=== PATIENT | female | born 1950 | race Caucasian/White ===

== ENCOUNTER 2018-07-23 01:46 | Outpatient (CLI) | payer OTHER, SELFPAY ==
[2018-07-23 10:59] LABS: ALT 38 U/L (12-78); AST 20 U/L (15-37); Albumin 4.1 g/dL (3.4-5.0); Alkaline Phosphatase 67 U/L (46-116); Anion Gap 7.1 mmol/L (3-11); BUN 21 mg/dL (7-18); Bilirubin, Total 0.4 mg/dL (0.2-1.0); CO2 28.9 mmol/L (21.0-32.0); CREATININE 0.78 mg/dL (0.55-1.02); Calcium 8.9 mg/dL (8.5-10.1); Chloride 105 mmol/L (98-107); Cholesterol 219 mg/dL (50-200); Glucose 107 mg/dL (70-100); HDL Cholesterol 84 mg/dL (40-60); LDL CHOLESTEROL 121 mg/dL (<100); Potassium 4.8 mmol/L (3.5-5.1); Sodium 141 mmol/L (136-145); Total Protein 6.8 g/dL (6.4-8.2); Triglyceride 49 mg/dL (30-150)
== END 2018-07-23 02:06 ==
DX: Z86.010 Personal history of colon polyps (principal); D48.5 Neoplasm of uncertain behavior of skin; Z13.220 Encounter for screening for lipoid disorders
CPT/HCPCS: 36415; 80053; 80061; 83721

== ENCOUNTER → 2018-11-02 09:53 | Outpatient (BNVA) | payer OTHER, SELFPAY | PROVIDERS: Visit Provider Physical Therapy Assistant | DX: Z12.11 Encounter for screening for malignant neoplasm of colon (principal); Z86.010 Personal history of colon polyps ==

== ENCOUNTER 2018-11-23 08:03 | Day surgery (SDC) | payer OTHER, SELFPAY ==
--- NOTE | 2018-11-23 06:30 | W.COLOREPORT ---
Date of service: 11/23/18 Time of Service: 09:18 Colonoscopy Report Date of procedure: 11/23/18 Pre-op diagnosis general: Hx of colon Polyps Post-op diagnosis procedure note: same (diverticulosis) Procedure: Colonoscopy Surgeon: Karin Brunner Anesthesia proc note operative: MAC (Jovanni Merino, KERRY/ ASA 2) Estimated blood loss (mL): 0 Pathology: none sent Complications: None Disposition: no change Indications: Mrs. Hoskins is a pleasant 68 year old who was seen in the office for another colonoscopy. She was noted to have a tubular adenoma in 2013. Risks, benefits and complications have been reviewed. Complications include but are not limited to bleeding, pain, perforation, missed small lesion/polyp, sore throat, aspiration and adverse reaction to the medications. Questions were entertained and answered to their satisfaction and they wished to proceed. No guarantees were given or implied. Prep: Miralax/Dulcolax Procedure Start Time: :18 Procedure End Time: 09:42 Retraction Time: 15 minutes Findings: Sigmoid diverticulosis No polyps this time Procedure Description: After informed consent was obtained the patient was taken to the procedure room and placed in a left decubitous position. Monitors were applied and a time out was done. The patients name, date of , procedure, allergies to medications and metal in their body was reviewed. The patient was then sedated. Once sedated and comfortable a rectal exam was done. External exam was normal. Internal exam revealed a normal sphincter tone and no palpable masses. The scope was then introduced and retro-flexed. No internal hemorrhoids were identified. The scope was then advanced to the cecum with some difficulty due to divericulosis of the sigmoid colon. The TI and appendiceal orifice were identified. The prep was adequate. The scope was then slowly retracted over 15 minutes back into the rectum. There were no polyps noted. There was moderate diverticulosis of the sigmoid colon. The scope was removed and the patient was woken up and taken back to Same day surgery in stable condition. The patient tolerated the procedure well and there were no immediate complications. Follow up: The patient should follow up in 5 years unless they develop changes in bowel habits or other new gastrointestinal complaints.
--- NOTE | 2018-11-23 06:31 | W.PM.DSUDISC ---
Discharge Plan Disposition Patient Disposition: HOME Condition: Good Discharge Details Reason For Visit: Hx of colon Polyps Attending Provider: Karin Brunner Primary Care Provider: Emi Kahn Home Meds and New Rx's Prescriptions: Continued naproxen 250 mg tablet 250 mg PO BID PRNRF: 0 glucosamine HCl 1,500 mg tablet 1,500 mg PO DAILY RF: 0 niacin 500 mg tablet 500 mg PO DAILY RF: 0 Triple Magnesium Complex 400 mg capsule PO RF: 0 fluticasone [Flonase Allergy Relief] 50 mcg/actuation spray,suspension 2 spray JR DAILY Qty: 47.4 RF: 3 Aidee-D 24 Hour 180-240 mg tablet extended release 24 hr 1 tab PO QAM Qty: 90 RF: 3 cholecalciferol (vitamin D3) 1,000 unit tablet 2,000 unit PO DAILY RF: 0 omega-3 fatty acids-fish oil [Fish Oil] 1 EACH capsule 1 ea PO DAILY RF: 0 metronidazole 55 GM gel with pump 1 applic Topical BID PRNQty: 1 RF: 0 lutein 20 MG capsule 1 cap PO DAILY RF: 0 coenzyme Q10 [Co Q-10] 30 MG capsule 1 cap PO DAILY RF: 0 acetaminophen [Tylenol Extra Strength] 500 mg Tablet 1,000 mg PO Q6H PRNRF: 0 Discontinued bisacodyl [Dulcolax (bisacodyl)] 5 mg tablet,delayed release (DR/EC) 5 mg PO ONCE Qty: 4 RF: 0 polyethylene glycol 3350 17 gram/dose powder 255 g PO ONCE Qty: 255 RF: 0 Discharge Instructions Instructions: Colonoscopy (DC), Diverticulosis (DC) Additional Instructions: Findings: Diverticulosis Follow up:5 years Please call if you develop: fevers >101.5 Nausea or Vomiting Abdominal pain that is not transient DAY SURGERY UNIT POST COLONOSCOPY INSTRUCTIONS 1. Because there will be medication in your system for the next 24 hours, you may feel a little sleepy. Your coordination will be affected. Therefore: a. Do not drive or operate dangerous equipment for 24 hours. b. Do not drink alcohol beverages for 24 hours (not even beer). c. Plan to go home and rest for the day. 2. Generally there are no restrictions on your activity after a day or so has gone by, but you may feel a bit fatigued for a few days. 3 After you arrive home you may have a light meal and return to a normal diet as you can tolerate it without feeling sick to your stomach. 4. After surgery, you may feel pain or discomfort. This should be only transient, but if it persists please contact your doctor. 5. If there are any questions regarding the findings of your procedure, please feel free to contact your doctor. 6. If you are unable to contact your doctor with a problem, contact the hospital at [phone]. 7. Continue all your regular medications unless directed otherwise. I understand the above instructions and have no questions. Signature of Patient or Responsible Adult Escort Date/Time Name of Responsible Adult Escort Signature of Nurse Date/Time Activity:: Activity as Tolerated Diet:: high fiber diet Discharge Orders Discharge Orders: Discharge Order (Routine); Ordered 11/23/18 Ordered By: Karin Brunner DS: Diagnosis Discharge Diagnosis (1) S/P colonoscopy: Status: Acute (2) Diverticulosis: Status: Acute
[2018-11-23 08:26] VITALS: BP 130/74; PULSE 87; RESP 16; TEMP 36.7; O2SAT 99
[2018-11-23] MEDS: Lactated Ringers 1,000 ML 80 ML IV (08:40)
[2018-11-23 10:15] VITALS: BP 132/75; PULSE 70; RESP 16; TEMP 36.3; O2SAT 99
== END 2018-11-23 10:37 | disposition home or self-care (01) ==
LOC: SUR 08:04
PROVIDERS: Visit Provider Surgery
PROC: 0DJD8ZZ Inspection of Lower Intestinal Tract, Via Natural or Artificial Opening Endoscopic (ICD-10-PCS; CPT 45378; principal; 2018-11-23 09:30)
DX: Z12.11 Encounter for screening for malignant neoplasm of colon (principal); K57.30 Diverticulosis of large intestine without perforation or abscess without bleeding; Z86.010 Personal history of colon polyps
CPT/HCPCS: G0105

== ENCOUNTER 2019-07-23 01:37 | Outpatient (CLI) | payer OTHER, SELFPAY ==
--- NOTE | 2019-07-23 11:12 | DI.RAD_ITS ---
EXAM: XR HIP RT COMPLETE AP PELVIS INDICATION: HIP PAIN WITH RIGHT GROIN PAIN. COMPARISON: No exams were available for comparison TECHNIQUE: 2D digital imaging was performed. FINDINGS: Three views were obtained. Cartilaginous joint space of the left hip and the bones of the left hip a ppear within normal limits. There is loss cartilaginous joint space of the right hip superiorly with [id number] appearance. Th ere is marked subchondral sclerosis and deformity of the femoral head and acetabulum. There are prom inent hypertrophic spurs of the acetabulum and femoral head. IMPRESSION: Conclusion end-stage degenerative change right hip
--- NOTE | 2019-07-23 11:14 | DI.RAD_ITS ---
EXAM: XR LUMBAR SPINE COMPLETE INDICATION: CHRONIC BILAT LOW LUMBAR PAIN WITH SCIATICA R. COMPARISON: No exams were available for comparison TECHNIQUE: 2D digital imaging was performed. FINDINGS: Five views were obtained. There are slight degenerative changes of the SI joints bilaterally. There are moderate hypertrophic facet joint and endplate changes. There is multilevel disc space narrowin g throughout the lumbar spine. No evidence of compression fracture. IMPRESSION: Conclusion degenerative changes of the lumbar spine, no evidence of acute process.
== END 2019-07-23 01:57 ==
DX: M54.31 Sciatica, right side (principal); M25.551 Pain in right hip; M16.12 Unilateral primary osteoarthritis, left hip; M53.3 Sacrococcygeal disorders, not elsewhere classified; M51.16 Intervertebral disc disorders with radiculopathy, lumbar region
CPT/HCPCS: 72110; 73502

== ENCOUNTER 2019-07-28 09:15 | Outpatient (CLI) | payer OTHER, SELFPAY ==
[2019-07-28 12:05] LABS: ALT 32 U/L (14-59); AST 22 U/L (15-37); Alkaline Phosphatase 65 U/L (46-116); Anion Gap 6.5 mmol/L (3-11); BUN 16 mg/dL (7-18); Bilirubin, Total 0.6 mg/dL (0.2-1.0); CO2 30.5 mmol/L (21.0-32.0); CREATININE 0.73 mg/dL (0.55-1.02); Calcium 9.2 mg/dL (8.5-10.1); Calculated LDL 128 mg/dL; Chloride 105 mmol/L (98-107); Cholesterol 218 mg/dL (50-200); Glucose 103 mg/dL (70-100); HDL Cholesterol 79 mg/dL (40-60); Potassium 4.8 mmol/L (3.5-5.1); Sodium 142 mmol/L (136-145); Triglyceride 56 mg/dL (30-150)
== END 2019-07-28 09:35 ==
DX: E78.5 Hyperlipidemia, unspecified (principal); I10 Essential (primary) hypertension; J30.9 Allergic rhinitis, unspecified; L40.9 Psoriasis, unspecified
CPT/HCPCS: 36415; 80053; 80061

== ENCOUNTER 2019-08-19 01:29 | Outpatient (CLI) | payer OTHER, SELFPAY ==
--- NOTE | 2019-08-19 10:11 | DI.MAMMO_ITS ---
EXAM: MG MAMMO SCREENING CLINICAL HISTORY: screening Z12.39 TECHNIQUE: Mammograms were interpreted according to the usual protocol including computer analysis w [facility] CAD system, tomosynthesis and C-view imaging. COMPARISON: 2014 AND 2016 FINDINGS: The breasts are composed of scattered areas of fibroglandular density, breast density category B. No suspicious masses or microcalcifications are seen. There has been no significant change when compared with the prior examinations. IMPRESSION: Category 1, negative mammogram. Yearly screening mammography is recommended. BI-RADS Cat 1 - Negative Breast Density - Category B - Scattered areas of fibroglandular density
== END 2019-08-19 01:49 ==
DX: Z12.31 Encounter for screening mammogram for malignant neoplasm of breast (principal)
CPT/HCPCS: 77063; 77067

== ENCOUNTER 2019-09-02 10:40 | Outpatient (CLI) | payer OTHER, SELFPAY ==
--- NOTE | 2019-09-02 10:00 | DI.RAD_ITS ---
EXAM: XR PELVIS AP INDICATION: pre-op planning; right hip pain. COMPARISON: XR HIP RT COMPLETE AP PELVIS from 07/23/2019 TECHNIQUE: 2D digital imaging was performed. FINDINGS: There is severe narrowing of the right superior hip joint space, with a [id number] appearance. Th ere is some flattening of the femoral head. There is periarticular spurring, sclerosis and subchondr al cyst formation. The left hip joint space is well maintained. IMPRESSION: Severe degenerative changes of the right hip.
== END 2019-09-02 11:00 ==
LOC: DIORS 10:40
PROVIDERS: Visit Provider Student in an Organized Health Care Education/Training Program
DX: M25.551 Pain in right hip (principal); M16.11 Unilateral primary osteoarthritis, right hip
CPT/HCPCS: 99203; 99214; 72170

== ENCOUNTER 2019-11-02 13:59 | Outpatient (CLI) | payer OTHER, SELFPAY ==
--- NOTE | 2019-11-02 13:20 | HPE_ITS ---
Assessment and Plan Assessment and plan (1) Unilateral primary osteoarthritis, right hip: Status: Chronic Assessment and plan: Plan: Patient is a reliable historian and denies any areas of skin breakdown along the left groin and anterior leg. Educated patient that if they develop any lesions, redness or skin breakdown to contact office as skin concerns would be a reason to cancel surgery. Patient gives verbal understanding. Educated patient on surgery covering surgical technique via models, recovery process, benefits and risks including but not limited to risk of infection, blood clot, fracture, numbness/tingling, damage to soft tissue/blood vessels/nerves in detail. After discussion patient gives verbal understanding of risks and elects to proceed with scheduling surgery. Patient had opportunity to have questions answered to their satisfaction. They will contact office if issues arise. Patient will continue to be scheduled for right total hip replacement with Dr. Malcolm. History of Present Illness Narrative: Ms. Hoskins is a 69-year-old female who presents to clinic for pre- operative exam for her scheduled right TATIANA. Patient reports approximately 3.5 years ago she started to develop anterior groin pain with walking. Patient describes her pain as being radiating along posterior to anterior portion of her groin. Pain is a constant sensation that is further aggravated with prolonged walking, when she first stands from a sitting position, prolonged sitting and on inclines such as hills and stairs. When discomfort is severe she also describes tightness in the thigh and calf. She is hesitant to put all her weight on her right hip. She has started to sit down while getting dressed to avoid discomfort. She has been taking naproxen more frequently due to worsening hip pain. She has significantly reduced her activity states that she used to be an avid walker and walk 4+ miles daily; now restricts her walking as much as possible to avoid pain. Patient denies any recent injuries or falls. Patient denies any new symptoms of numbness or tingling in her lower extremities. Due to her continued pain she elected to proceed with surgical intervention. Pertinent Surgical Information Denies past medical history of: Hypertension, stroke, cardiac issues, angina, asthma, COPD, sleep apnea, renal issues, liver issues, hepatitis, gastrointestinal ulcers, bleeding disorders, seizures, migraines, anxiety, depression, diabetes, autoimmune disorders, thyroid issues Denies prior complications from surgery or anesthesia. Review of Systems Constitutional Constitutional: Denies fever(s), Denies frequent falls and Denies headache(s) Eyes Eyes: Denies change in vision ENT Ears, Nose, Mouth, and Throat: Denies dizziness, Denies ear discharge, Denies headache(s), Denies epistaxis, Denies nasal discharge and Denies sore throat Cardiovascular Cardiovascular: Denies chest pain, Denies rapid heart rate, Denies irregular heart rhythm, Denies palpitations, Denies dyspnea, Denies dyspnea on exertion, Denies orthopnea, Denies paroxysmal nocturnal dyspnea and Denies slow heart rate Respiratory Respiratory: Denies cough, Denies dyspnea, Denies dyspnea on exertion and Denies wheezing Gastrointestinal Gastrointestinal: Denies abdominal pain, Denies melena, Denies hematochezia, Denies constipation, Denies diarrhea, Denies nausea and Denies vomiting Genitourinary Genitourinary: Denies hematuria, Denies dysuria and Denies urinary urgency Musculoskeletal Musculoskeletal: Reports as per HPI, Denies numbness and Denies tingling Neurologic Neurologic: Denies dizziness, Denies frequent falls, Denies headache(s), Denies numbness and Denies tingling Psychiatric Psychiatric: Denies anxiety and Denies depression Endocrine Endocrine: Denies palpitations Allergic/Immunologic Allergic/Immunologic: Denies wheezing [facility] Medical History (Updated 11/02/19 @ 13:57 by Jennifer Jara) Diverticulosis (Acute) Healthcare maintenance (Acute) Unilateral primary osteoarthritis, right hip (Chronic) Surgical History (Updated 11/02/19 @ 13:29 by Jennifer Jara) Extraction of cataract 07/26/14 LEFT 02/13/16; RIGHT S/P colonoscopy (Resolved ~11/23/18) Skin Cancer Removal BCC FROM LEFT CALF Status post tonsillectomy and adenoidectomy (Inactive) Family History (Updated 07/21/19 @ 11:08 by Ace Bernal) Mother Hyperlipidemia Cancer Father , AGE 80 Lung cancer Sister Melanoma Sister , AGE 56 No problems noted. Sister Melanoma Asthma Son No problems noted. Son No problems noted. Son No problems noted. Social History (Updated 11/02/19 @ 13:32 by Jennifer Jara) Smoking/Tobacco Use Status: Former Tobacco Use Alcohol Intake: current Alcohol Intake frequency: 0-2 drinks per day Alcohol type: wine Drug use: Never Substance use type: does not use Counseling given: No Counseling provided: none Caregiver/Support person: No Household members: spouse Housing: house Communication Needs: None Pets and animals: Yes Pets and animals: dog(s) and horse(s) Sexually active: Yes Do you think of yourself as: straight/heterosexual Current gender identity: decline to answer What is your relationship status?: How often do you talk on the phone with friends or family?: twice per week How often do you get together with friends or relatives?: decline to answer How often do you attend congregation or latter-day services?: decline to answer Do you belong to any clubs or organized social groups?: decline to answer Panel score (0-1 are the most socially isolated patients): 1 What type of physical activity do you participate in: yoga Duration: decline to answer Frequency: 1-2 times per week Mary Jane/Church: Mosque Special mary jane needs: No Seatbelt use: always Helmet use: Yes Helmet use: always Drive intox or ride w/intox tractor driver: No Meds Home Medications and Allergies Home Medications Medication Instructions Recorded Confirmed Type coenzyme Q10 [Co Q-10] 1 cap PO DAILY 11/26/13 09/02/19 History metronidazole 1 applic TOPICAL BID PRN #1 tube 07/14/17 09/02/19 History cholecalciferol (vitamin D3) 25 2,000 unit PO DAILY tab 07/15/18 09/02/19 History mcg (1,000 unit) tablet fexofenadine-pseudoephedrine ER 1 tab PO QAM #90 tab 07/15/18 09/02/19 Rx 180 mg-240 mg tablet,ext.release 24 hr naproxen 250 mg tablet 250 mg PO BID PRN 11/02/18 09/02/19 History acetaminophen [Tylenol Extra 1,000 mg PO Q6H PRN 11/23/18 09/02/19 History Strength] Tumeric and Hemp Oil See Rx Instructions .ROUTE .COMPLEX 07/20/19 09/02/19 History Ultimate Dunning See Rx Instructions .ROUTE .COMPLEX 07/20/19 09/02/19 History bone support See Rx Instructions .ROUTE .COMPLEX 07/20/19 09/02/19 History fluticasone propionate 50 2 spray JR DAILY #47.4 gm 07/20/19 09/02/19 Rx mcg/actuation nasal spray,suspension pneumoc 13-jerome conj-dip cr(PF) 0.5 0.5 ml IM ONCE #0.5 ml 07/20/19 09/02/19 Rx mL IM syringe varicella-zoster [id number] (PF) 50 0.5 ml IM ONCE #1 each 07/20/19 09/02/19 Rx mcg/0.5 mL IM susp, kit Allergies Allergy/AdvReac Type Severity Reaction Status Date / Time No Known Allergies Allergy Verified 11/02/19 13:32 Exam Const General: cooperative and no acute distress [facility] Head: normal to inspection, normocephalic and atraumatic Ears: external ears normal General nose exam: external nose normal and no nasal discharge Face and sinus: face symmetric Mouth: oral mucosae normal, lip normal, tongue normal and moist mucous membranes Teeth and gingiva: dentition normal Throat: posterior oropharynx normal Eyes General: appearance normal, both eyes and all related structures Pupils: PERRL EOM: EOM intact bilaterally Neck Neck: trachea midline Carotids: normal carotid upstroke Lymphatic: no lymphadenopathy noted Resp Effort & Inspection: normal respiratory effort and able to speak in complete sentences Auscultation: clear to auscultation bilaterally, no rales, no rhonchi and no wheezes Cardio Heart Sounds: S1 normal, S2 normal and no murmurs Pulses: radial pulses present bilaterally GI Palpation: soft, no hepatosplenomegaly and nontender Auscultation: normal bowel sounds Skin General skin exam: no rashes or lesions noted
[2019-11-02 15:27] LABS: HCT 40.7 % (36.0-46.0); HGB 13.2 g/dL (12.0-15.5); Mean Corp. HGB Concentration 32.4 g/dL (32.0-36.0); Mean Corpuscular Hemoglobin 28.4 pg (27.0-33.0); Mean Corpuscular Volume 87.5 fL (80-95); Mean Platelet Volume 12.1 fL (8.0-11.0); Platelet Count 216 x1000/uL (130-400); RBC 4.65 m/cumm (4.00-5.20); RBC Distribution Width 14.3 % (11.7-14.6); White Blood Cell Count 5.44 k/cumm (4.4-10.8)
[2019-11-02 16:05] LABS: Anion Gap 7.9 mmol/L (3-11); BUN 24 mg/dL (7-18); CO2 29.1 mmol/L (21.0-32.0); CREATININE 0.63 mg/dL (0.55-1.02); Calcium 9.5 mg/dL (8.5-10.1); Chloride 106 mmol/L (98-107); Glucose 94 mg/dL (74-106); Potassium 4.2 mmol/L (3.5-5.1); Sodium 143 mmol/L (136-145)
== END 2019-11-02 14:19 ==
PROVIDERS: Visit Provider Student in an Organized Health Care Education/Training Program
DX: M25.551 Pain in right hip (principal); M16.11 Unilateral primary osteoarthritis, right hip; Z01.818 Encounter for other preprocedural examination; Z01.812 Encounter for preprocedural laboratory examination
CPT/HCPCS: 36415; 80048; 85027; 86850; 86900; 86901; NC

== ENCOUNTER 2019-11-10 05:57 | Observation (INO) | payer OTHER, SELFPAY ==
[2019-11-10] VITALS (8 sets, daily range): BP systolic 101–149; BP diastolic 43–84; PULSE 66–88; RESP 11–18; TEMP 36.3–36.8; O2SAT 97–99
[2019-11-10] MEDS: Acetaminophen 500 MG TAB 1000 MG PO ×2 (06:45→14:22)
[2019-11-10] MEDS: Celecoxib 200 MG CAP 400 MG PO (06:45)
[2019-11-10] MEDS: Lactated Ringers 1,000 ML 80 ML IV ×2 (06:45→09:31)
[2019-11-10] MEDS: ceFAZolin 2 GM/50 ML BAG IVPB (07:26)
--- NOTE | 2019-11-10 08:39 | DI.RAD_ITS ---
EXAM: XR HIP RT IN OR CLINICAL HISTORY: osteoarthritis right hip. TECHNIQUE: 2D digital imaging was performed. COMPARISON: XR PELVIS AP from 09/02/2019 FINDINGS: Fluoroscopy was utilized in the OR. There has been interval placement of a right total hip replaceme nt. Orthopedic hardware appears in good position. Please refer to the procedure report for complete details. IMPRESSION: Right total hip replacement. FLUORO TIME: 32.2 seconds
[2019-11-10] MEDS: Ketorolac 30 MG/ML VIAL (09:04)
[2019-11-10] MEDS: Bupivacaine 0.25% Pres-Free 30 ML VIAL (09:04)
--- NOTE | 2019-11-10 10:44 | ROE_ITS ---
Date of service: 11/10/19 Time of Service: 10:44 Operative Note Operative Note DATE OF PROCEDURE: 11/10/19 PRE-OP DIAGNOSIS: Right Hip Osteoarthritis POST-OP DIAGNOSIS: same PROCEDURE: Right Anterior Total Hip Arthroplasty SURGEON: Bjorn Malcolm BUG TRIMMER: Jennifer Jara ANESTHESIA: spinal ESTIMATED BLOOD LOSS: 500 PATHOLOGY: none sent COMPLICATIONS: None Patient was transported to: PACU Patient's condition: stable Implants: 1. Depuy [place] Acetabular Component, 48mm 2. Depuy Acetabular Liner, [id number], +4 lateralized 3. Depuy Corail Standard Collared Femoral Stem, Size 10 4. Depuy Altrx Ceramic Femoral Head, Size 32+5mm Indications: I have seen Catie in clinic for symptoms of hip arthritis, confirmed with radiographic findings. She has exhausted nonoperative methods and was having significant limitations in daily function and desired better function and less pain. I discussed the technical details of a hip replacement. I explained the risks of the procedure to include, but not limited to, bleeding, infection, pain, stiffness, fracture, damage to nerves and vessels, damage to muscles and tendons, loosening, instability, leg length inequality, need for repeat procedure, blood clot and cardiopulmonary demise. Despite these risks, she elected to proceed. Findings: There was significant signs of arthritis throughout the hip. There was complete loss of cartilage over the superior femoral head with mild flattening and deformity. Procedure Description: Catie was greeted in the preoperative holding area where the correct side was identified and marked. The consent was reviewed with the patient and signed. The history and physical was updated. All questions were answered. She was taken back to the operating room. A spinal anesthestic was then administered. The patient was placed into the supine position on the operating room table. The patient was then positioned onto the ARCH table. Both feet were wrapped with Webrill cotton wrap along with Coban. The feet were placed in specialized boots for the ARCH table, well seated within the boot and secured. SCDs were applied. The patient was then slid down onto a peroneal post and the nonoperative leg was secured in a leg valdez attached to the table. The operative side was placed into the ARCH table attachment and bed height and positioning was secured. A preoperative AP pelvis was obtained to serve as a reference for determining leg lengths. Prophylactic antibiotics in the form of Cefazolin were administered. 1g of Tranxemic Acid was given intravenously within 30 minutes of incision. The right leg was then prepped with Chloraprep and draped in a standard fashion. A second prep with Chloraprep was performed prior to placement of a shower-curtain type drape with Iodine impregnated skin protection. A timeout to confirm correct identity, side and site, procedure, allergies, anesthesia, and medical concerns was performed. An obliquely oriented incision was made starting lateral to the ASIS and running distal over the Tensor Fascia Inés (TFL) muscle belly toward the fibular head, approximately 10cm. The skin and soft tissue was dissected sharply, through Saray?s fascia, and to the fascia of the TFL. With the fascia and superior border of the IT band identified, the fascia was incised with a new knife just above any perforators from the IT band. The TFL muscle belly was bluntly dissected away from the fascia and moved laterally. The fat between TFL and rectus was identified to ensure the dissection was not within the TFL. Blunt dissection created space between abductors and the capsule and retractor was placed over the lateral femoral neck. The fibers of the rectus femoris tendon were identified and these were freed from the anterior capsule. A second cobra retractor was placed around the medial femoral neck. The TFL was further retracted laterally to show the deep fascia. Careful dissection through this layer identified three main crossing vessels of the lateral femoral circumflex. These were cauterized in multiple locations and then cut without any noticeable bleeding. The TFL was further released bluntly from the deep fascia to expose anterior hip capsule and fat The Wesley orthopaedic retractor was then placed beneath the TFL and against sartorius and medial soft tissues to protect and retract the soft tissues. A T-capsulotomy was then performed starting at the superior lateral acetabulum and moving distally to the intertrochanteric ridge. These capsular flaps were tagged with a No. 1 Ethibond and elevated from within. The capsular flaps were released to the shoulder of the lateral neck and to the lesser trochanter to give excellent visualization of the proximal femur. A neck osteotomy was performed using an oscillating saw based on preoperative templates. This cut started in the shoulder and of the lateral neck and exited medially. The saw was at all times directed medially to avoid injury to the greater trochanter. 6cm of traction was applied to the leg and the osteotomy opened. The femoral head was removed with a corkscrew, making sure to protect the TFL on its exit. This was measured on the back table to determing the starting reamer size. Portions of the rectus obscuring visualization were minimally elevated off the superior acetabulum. An anterior retractor was placed over the anterior wall between capsule and labrum and attached to the Gripper retraction system. A posterior retractor was placed similarly. This provided excellent visualization. The contents of the cotyloid fossa were removed with electrocautery and the labrum was removed with a knife. There was a notable floor osteophyte. There was significant chondromalacia of the superior acetabulum. Acetabular reaming began with a 44mm reamer. This first reaming was directed anterior to posterior and medial to get down to the true floor. This was inspected and reamed until the true floor was reached. I then reamed sequentially up to a 47mm reamer where good fit was obtained. The larger reamers were oriented based on anatomical reference of the anterior and lateral hogan to ensure proper abduction and anteversion. Positioning and size was confirmed with the fluoroscopy. A 48mm Depuy [place] acetabular component was selected. The acetabulum was reamed around the periphery with the selected acetabular size to prevent a rim fit. The deep tissues were irrigated. The acetabular component was then impacted in a position of about 45 degrees of abduction and 15-20 degrees of anteversion, using the patient?s anatomy as the ultimate landmark. Fluoroscopy was used to confirm this. There was excellent critical care unit manager of the acetabular component and the inserting handle was removed. A primary acetabular screw was placed into the ilium by drilling through one of the holes in the acetabular component. This was measured and an approrpriately sized screw was placed with excellent purchase. It was checked not to be proud. The acetabular liner, Depuy [id number] +[id number] lateralized polyethylene liner, was inserted and lined up with the tines of the acetabular component. There was no soft tissue interposition. The liner was then impacted into position and confirmed to be well-seated. A portion of the dontrell-articular cocktail was then injected around the acetabulum into the capsule and periosteum. This cocktail consisted of 50cc of 0.25% Bupivicaine and 20cc of Exparel, expanded to a total of 120cc. Traction was released from the femur. The leg was rotated to 120 degrees. Any remaining medial capsule was released until the lesser trochanter was easily palpable. A Swann retractor was placed medially. The lateral capsule was further released into the shoulder to allow access to the greater trochanter. A Swann retractor was placed over the greater trochanter which allowed the trochanter to flip in front of the capsule for excellent exposure. The leg was brought down into maximal extension and 20 degrees of adduction while ensuring there was no impingement on the acetabulum. Any remnant capsule within the trochanter was released. Piriformis and obturator externis were identified and protected. There was excellent access to the proximal femur. The lateral neck remnant was removed with a rongeur. A blunt canal probe was used to identify the canal and trajectory for later broaching. A box osteotome initiated the broach course. A small curved rasp and a curved curette were used to work laterally. Broaching then began with a size 8 Corail broach. This was inserted manually around the trochanter and into the canal before mallet blows. The broach was seated to a few millimeters below the cut level based on the neck cut and the preoperative template. Sequential broaching was continued until a tight fit was obtained with good rotational control of the femur. A trial standard neck was inserted along with a +5 trial head. The leg was brought out of extension and adduction and then reduced with traction and internal rotation. The leg was stable anteriorly in a position of 30 degrees of extension and 90 degrees of external rotation. Fluoroscopy was used to ensure there was no fracture and the stem was seated well. Leg lengths were checked with an AP pelvis and pelvic reference points. Joint point was utilized to confirm positioning and the determination was that the leg was 1-2mm longer than desired. The leg was brought back into extension, external rotation and adduction and the stem was impacted an additional 1-2mm and then planed. The periosteum and surrounding tissue was injected with remaining portion of the dontrell-articular cocktail. The proximal femur was irrigated as well as the deep tissues. The Depuy Corail standard collared stem, size 10, was then manually inserted into the proximal femur making sure to control rotation. It was then malleted into position with light blows, giving breaks to allow bone expansion and decrease risk of fracture. The selected Depuy Altrx Ceramic Head, size 32+5mm, was then placed onto the clean and dry trunnion and secured with impaction onto the tapered fit. The leg was brought back out of extension and adduction and reduced with traction and internal rotation. Stability was confirmed with no shuck at 90 degrees of external rotation and 30 degrees of extension. No impingement through range of motion arc. Final x-ray images were obtained with fluoroscopy to confirm adequate positioning and no intraoperative fracture. The deep tissues were thoroughly irrigated with a pulse lavage. The second dose of TXA 1g was administered intravenously.The capsule was then reapproximated with the previously placed Ethibond sutures. The TFL fascia was finally closed with a No. 2 Stratafix, barbed suture. Deep tissues were then reapproximated with 0 Vicryl and a running 2-0 Vicryl. The skin was closed with a running 4-0 Monocryl in a subcuticular fashion. This was reinforced with skin glue. A Mepilex silver dressing was applied. At the end of the case, all counts were correct. Catie was transferred to the hospital bed without difficulty and suffering no apparent complication. She has a good prognosis. Physical therapy will start today and without restrictions, weight-bearing as tolerated. Aspirin 81mg BID will be used for DVT prophylaxis.
--- NOTE | 2019-11-10 13:40 | W.NUTCONSULT ---
Date of service: 11/10/19 Time of Service: 13:40 Nutritional Consult ASSESSMENT: 69 year old female s/p Right Hip DJD. BMI wnl for age. Following regular meal plan with excellent intake. Not considered at nutritional risk. MONITORING AND EVALUATION: po intake, weight, labs Time Spent in Nutritional Counseling and Treatment: 0 time spent face to face
[2019-11-10] MEDS: ceFAZolin 1 GM/50 ML BAG IVPB (14:21)
--- NOTE | 2019-11-10 14:31 | PT.INIE ---
Date of service: 11/10/19 Time of Service: 13:34 PT Notes Visit Reasons: R HIP DJD Physical Therapy Inpatient Initial Evaluation Date: 11/10/2019 Referring Doctor: Bjorn Malcolm M.D. PT Orders: PT CONSULT: s/p ortho surgery; s/p anterior TATIANA Precautions: Fall. Standard. Activity as tolerated. Patient Profile/Admitting Diagnosis: Pt is a 69-year-old female presenting S/P a R anterior approach total hip arthroplasty on post-operative day 0. PMHX: Medical History (Updated 11/02/19 @ 13:57 by Jennifer Jara) Diverticulosis (Acute) Healthcare maintenance (Acute) Unilateral primary osteoarthritis, right hip (Chronic) Surgical History (Updated 11/02/19 @ 13:29 by Jennifer Jara) Extraction of cataract 07/26/14 LEFT 02/13/16; RIGHT S/P colonoscopy (Resolved ~11/23/18) Skin Cancer Removal BCC FROM LEFT CALF Status post tonsillectomy and adenoidectomy (Inactive) Social History/Home Situation: Pt is a retired female that lives at home with her and three dogs. She notes that to enter the home she is required to descend three steps. Notes that she could also enter the home through the kitchen and not be required to negotiate stairs. She notes that she has horses and chickens as well, but that her is able to maintain their care. Equipment Owned/DME: crutches, four-wheeled walker Subjective: Pt reports that she is not experiencing any pain or dizziness/lightheadedness. Upon standing up she notes that she feels that the right side is long than the left. Objective: General Observation: IV line in RUE. River catheter in place. Mepilex Ag over surgical incision. Mental Status: alert and oriented x4. Pain: 0/10 ROM: Right Upper Extremity: Shoulder Flexion WFL. Shoulder abduction WFL. Elbow flexion WFL. Wrist flexion WFL. Opening and closing of hand WFL. Left Upper Extremity: Shoulder Flexion WFL. Shoulder abduction WFL. Elbow flexion WFL. Wrist flexion WFL. Opening and closing of hand WFL. Right Lower Extremity: Hip flexion 110 degrees. Hip abduction WFL. Knee flexion WFL. Ankle dorsiflexion WFL. Ankle plantarflexion WFL. Left Lower Extremity: Hip flexion WFL. Hip abduction WFL. Knee flexion WFL. Ankle dorsiflexion WFL. Ankle plantarflexion WFL. Strength: Right Upper Extremity: Shoulder flexors 5/5. Shoulder abductors 5/5. Elbow flexors 5/5. Elbow extensors 5/5. Distribution Collection Operator strong. Left Upper Extremity: Shoulder flexors 5/5. Shoulder abductors 5/5. Elbow flexors 5/5. Elbow extensors 5/5. Distribution Collection Operator strong. Right Lower Extremity: Hip flexors 3-/5. Hip abductors 4/5. Knee flexors 4/5. Knee extensors 5/5. Ankle dorsiflexors 5/5. Ankle plantarflexors 5/5. Left Lower Extremity: Hip flexors 5/5. Hip abductors 5/5. Knee flexors 5/5. Knee extensors 5/5. Ankle dorsiflexors 5/5. Ankle plantarflexors 5/5. Sensation: Intact as to pain and pressure on bilateral lower extremities. Bed Mobility/Transfers: Rolling independent Supine to sit independent Sit to supine independent Sit to stand supervision with cues to push up from bed Stand to sit supervision Bed to chair Chair to bed Gait: Pt was able to ambulate 120 feet with WBAT using a front-wheeled walker. Step through gait pattern with decreased radha. CGA by PT student with wheelchair follow by PT. Pt denied increased pain, SOB, lightheadedness/dizziness. Swing phase on the L LE appeared longer. Balance: Static Sitting: Normal Dynamic Sitting: Normal Static Standing: Good Dynamic Standing: Fair Special Tests: Mobility Limitations Standardized Measure [facility] 6 clicks Basic Mobility Inpatient Short Form: Raw Score: 24 CMS Score: 0% deficit Informed Consent/Education: Patient instructed in purpose of PT consult and plan of care. Pt was instructed in HEP to perform once every hour while in hospital setting, including gluteus sets x10, LAQ x10, seated clamshells x10, and bilateral ankle pumps x10. Assessment: Pt is a 69-year-old female presenting status post a R anterior approach total hip arthroplasty on post-operative day 1. Pt presents to physical therapy with impairment level findings and functional impairments as listed below. She would continue to benefit from skilled physical therapy for improvements in functional mobility. Patient presents with clinical signs and symptoms consistent with current/admitting diagnoses that have resulted to mobility limitations, gait instability, and generalized weakness as demonstrated by the following impairment level findings: 1. Decreased strength to R hip musculature 2. Impaired standing balance 3. Impaired activity tolerance 4. Limitation of joint range of motion in R hip Impairments are contributing to the following functional limitations: 1. Increased dependence with transfers 2. Inability to safely ambulate without assistive device and physical assistance 3. Increase completion time for mobility ADL performance 4. Increased fall risk 5. Inability to negotiate steps alone safely Patient is assessed as a [id number] moderate complexity based on the following: History: Pt is a 69-year-old female presenting status post a R anterior approach total hip arthroplasty on post-operative day 1. Pt presents with impairment level findings and functional limitations as addressed above. Examination: Demonstrable impairment in strength, balance, and range of motion with underlying impairments and functional limitations as documented above Presentation: Evolving Decision Makin moderate complexity Goals: Goals X1 week 1. Sit-Stand independent 2. Stand-Sit independent 3. Bed-Chair independent 4. Chair-Bed independent 5. Independent gait on level surface with use of least restrictive device for at least 300 feet without report of pain nor dyspnea 6. Independent stair negotiation while holding onto bilateral rails for at least 5 steps without report of pain nor dyspnea 7. Independent with home exercise program 8. Good dynamic standing balance/tolerance Plan of Care/Treatment Plan: 1-2x/day, 7 days/week x 1 week. Plan of care has been reviewed with the LEATHER ROLLER providing the service under Physical Therapy direction. Initiate Physical Therapy intervention for strengthening, bed mobility, transfers, gait, stairs, balance training, use of assistive device. DISCHARGE RECOMMENDATIONS: Pt is to be discharged home when medically cleared. Recommend the use of a front-wheeled walker for safe ambulation in the home. TREATMENT CODE/TIME: 31695 x 26 minutes beginning at 13:34 P.M. Thank you very much for this referral. Dorota Winter, SPT Doctor of Physical Therapy Student [facility] Supervision provided by Cynthia Helms PT, DPT, CLT [facility] [place], [place]
--- NOTE | 2019-11-10 15:32 | W.PM.DS.N ---
Date of service: 11/10/19 Time of Service: 15:32 DS: Diagnosis Discharge Diagnosis (1) Unilateral primary osteoarthritis, right hip: Status: Chronic Discharge Plan Disposition Patient Disposition: HOME Condition: Good Discharge Details Reason For Visit: R HIP DJD Admit Date/Time: 11/10/19 05:57 Admit Provider: Bjorn Malcolm Attending Provider: Bjorn Malcolm Primary Care Provider: Emi Kahn Hospital Course Hospital Course: Patient was admitted to the medical/surgical floor following the procedure. It was tolerated well without any notable medical, surgical, or anesthetic complications. Mobilization began postoperatively. The vences catheter was removed and voiding spontaneously. Vitals were stable. Physical therapy worked with the patient and was cleared for discharge home. No acute medical issues. Home Meds and New Rx's Prescriptions: New celecoxib 200 mg capsule 200 mg PO BID PRN (Reason: pain) Qty: 60 RF: 1 aspirin 81 mg tablet,delayed release (DR/EC) 81 mg PO BID Qty: 60 RF: 0 acetaminophen 500 mg tablet 1,000 mg PO Q8H PRN (Reason: pain) Qty: 90 RF: 3 pantoprazole 40 mg tablet,delayed release (DR/EC) 40 mg PO DAILY Qty: 30 RF: 0 oxycodone 5 mg tablet 5 mg PO Q4H Qty: 12 RF: 0 Continued bone support See Rx Instructions .ROUTE .COMPLEX RF: 0 Ultimate [place] 1 RF: 0 Tumeric and Hemp Oil See Rx Instructions .ROUTE .COMPLEX RF: 0 Shingrix (PF) 50 mcg/0.5 mL suspension for reconstitution 0.5 ml IM ONCE Qty: 1 RF: 0 Prevnar 13 (PF) 0.5 mL syringe 0.5 ml IM ONCE Qty: 0.5 RF: 0 fluticasone propionate [Flonase Allergy Relief] 50 mcg/actuation spray,suspension 2 spray JR DAILY Qty: 47.4 RF: 3 Aidee-D 24 Hour 180-240 mg tablet extended release 24 hr 1 tab PO QAM Qty: 90 RF: 3 cholecalciferol (vitamin D3) 1,000 unit tablet 1,000 unit PO DAILY RF: 0 metronidazole 55 GM gel with pump 1 applic Topical BID PRNQty: 1 RF: 0 coenzyme Q10 [Co Q-10] 30 MG capsule 1 cap PO DAILY RF: 0 Discontinued naproxen 250 mg tablet 250 mg PO BID PRNRF: 0 acetaminophen [Tylenol Extra Strength] 500 mg Tablet 1,000 mg PO Q6H PRNRF: 0 Discharge Instructions Additional Instructions: Dr. Malcolm?s Total Hip Discharge Instructions Activity: The most important activity is to walk. You should try to take short walks a few times a day. You have no restrictions on movement or positioning, but do not try to force what you do. You will find some stiffness and weakness with hip flexion (lifting your knee). Do not try to strengthen this too early, continue to practice walking and stairs and this will come. - Outpatient physical therapy can be helpful to help return you to a normal gait and improve your flexibility and strength. This can start around 2 weeks. For some patients, it?s not necessary. Usually this is determined at the time of discharge or at the first post-operative visit. - You should wear the VANESA hose on both legs for 2 weeks. Dressing: Keep the surgical dressing in place for at least one week. After the first week it may be removed and replace with light gauze and tape or nothing. It may get wet after 3 days but avoid soaking the dressing. If it gets wet, just lightly pat dry. It is important to always keep some gauze between skin folds, especially when you are sitting. Spend some time with the wound exposed when you are lying flat as the incision does wrinkle onto itself. Medications: - You should take Tylenol and an anti-inflammatory Celebrex as your primary pain control medications - You have been prescribed a stronger pain medication Oxycodone for breakthrough pain, take as needed as prescribed. - You have also been prescribed a stomach acid reduction agent Pantoprozole to help reduce stomach acid and reflux. - You will be taking Aspirin 81mg twice a day for DVT prevention unless instructed otherwise. - If you have constipation you should take Colace or Miralax (both [id number]-ozt-auvbenz). It takes most people 3-4 days to have a bowel movement. Follow-up: 2 weeks Referrals: Bjorn Malcolm MD [ [facility] STAFF PHYSICIAN] - Activity:: Activity as Tolerated Equipment/Supplies:: Walker Diet:: As Tolerated Discharge Orders Discharge Orders: Discharge Order (Routine); Ordered 11/10/19 Ordered By: Bjorn G Prohaska DS: Summary Status at Discharge Functional status at discharge: uses cane/walker Overall status at discharge: patient is progressing back to baseline Mental Status: mental status grossly normal Speech and Movement: speech and movement normal Mood: congruent mood Affect: normal affect Exam Narrative Exam Narrative: Catie is doing well. She is alert and oriented x3. She is in no acute distress. She is sitting comfortably in the chair. Evaluation of the right hip shows no significant ecchymosis. The dressing is clean dry and intact. Psych Mental Status: mental status grossly normal Speech and Movement: speech and movement normal Mood: congruent mood Affect: normal affect DS: Data Vitals/I&O Vitals and I&O: Vital Signs Temperature 36.4 C L 11/10/19 11:00 Temperature Source Temporal Artery Scan 11/10/19 11:00 Pulse 76 11/10/19 11:00 Pulse Rhythm Regular 11/10/19 12:20 Respiratory Rate 18 11/10/19 11:00 Respiratory Effort 11/10/19 12:20 Respiratory Depth Normal 11/10/19 12:20 Respiratory Pattern Normal 11/10/19 12:20 Blood Pressure 118/62 11/10/19 11:00 Pulse Oximetry 99 11/10/19 11:00 Respiratory End-tidal CO2 31 11/10/19 10:10 Oxygen Delivery Method Room Air 11/10/19 11:00 Oxygen Flow Rate 0 11/10/19 11:00 Pain Level 1 11/10/19 14:22 Comment 11/10/19 10:28 Intake & Output 11/09/19 11/10/19 11/10/19 23:59 11:59 23:59 Intake Total 1450 / 2930 1480 / 2930 Output Total 1050 / 2050 1000 / 2050 Balance 400 / 880 480 / 880 Weight 61.3 kg Intake: IV 1420 / 1420 Oral 30 / 1510 1480 / 1510 Output: Urine 550 / 1550 1000 / 1550 Estimated Blood Loss 500 / 500 Other: Urine Color Pale Yellow Yellow Urine Appearance Clear Clear Emesis Description None [facility] Medical History Diverticulosis (Acute) Healthcare maintenance (Acute) Unilateral primary osteoarthritis, right hip (Chronic) Surgical History Extraction of cataract 07/26/14 LEFT 02/13/16; RIGHT S/P colonoscopy (Resolved ~11/23/18) Skin Cancer Removal BCC FROM LEFT CALF Status post tonsillectomy and adenoidectomy (Inactive) Family History Mother Hyperlipidemia Cancer Father , AGE 80 Lung cancer Sister Melanoma Sister , AGE 56 No problems noted. Sister Melanoma Asthma Son No problems noted. Son No problems noted. Son No problems noted. Social History Smoking/Tobacco Use Status: Former Tobacco Use Tobacco: How many years used: 20 Alcohol Intake: current Alcohol Intake frequency: 0-2 drinks per day Alcohol type: wine Drug use: Never Substance use type: does not use Counseling given: No Counseling provided: none Caregiver/Support person: No Household members: spouse Housing: house Communication Needs: None current occupation: retired Pets and animals: Yes Pets and animals: dog(s) and horse(s) Sexually active: Yes Do you think of yourself as: straight/heterosexual Current gender identity: decline to answer Other: Malick What is your relationship status?: How often do you talk on the phone with friends or family?: twice per week How often do you get together with friends or relatives?: decline to answer How often do you attend shinto or roman catholic services?: decline to answer Do you belong to any clubs or organized social groups?: decline to answer Panel score (0-1 are the most socially isolated patients): 1 What type of physical activity do you participate in: yoga Duration: decline to answer Frequency: 1-2 times per week Mary Jane/Evangelical: Adventism Special mary jane needs: No Seatbelt use: always Helmet use: Yes Helmet use: always Drive intox or ride w/intox sprinkling truck driver: No
--- NOTE | 2019-11-10 16:47 | PDOC.CMPRO ---
Care Management Progress Note CM consulted to support DME attainment of FWW per PT/MD requests. CM reviewed DME options, and possible co-pay amount for MCR Replacement coverage and provided FWW to Leni through [facility] consignment per her request. COURTNEY coordinated orders to [facility], and notified OSMEL Mcduffie that FWW was filled per MD order.
--- NOTE | 2019-11-12 11:54 | PT.INDS ---
Date of service: 11/12/19 Time of Service: 11:54 PT Notes Visit Reasons: R HIP DJD Inpatient Physical Therapy Discharge Summary Dates: 11/12/2019 Dates of Service: 11/10/2019 This is a clinical summary of care provided on the duration of dates listed above. No charge was made in the completion of this documentation. With with Larry noel did Referring Doctor: Bjorn Malcolm M.D. PT Orders: PT CONSULT: s/p ortho surgery; s/p anterior TATIANA Precautions: Fall. Standard. Activity as tolerated. Patient Profile/Admitting Diagnosis: Pt is a 69-year-old female presenting S/P a R anterior approach total hip arthroplasty on post-operative day 1. PMHX: Medical History (Updated 11/02/19 @ 13:57 by Jennifer Jara) Diverticulosis (Acute) Healthcare maintenance (Acute) Unilateral primary osteoarthritis, right hip (Chronic) Surgical History (Updated 11/02/19 @ 13:29 by Jennifer Jara) Extraction of cataract 07/26/14 LEFT 02/13/16; RIGHT S/P colonoscopy (Resolved ~11/23/18) Skin Cancer Removal BCC FROM LEFT CALF Status post tonsillectomy and adenoidectomy (Inactive) Social History/Home Situation: Pt is a retired female that lives at home with her and three dogs. She notes that to enter the home she is required to descend three steps. Notes that she could also enter the home through the kitchen and not be required to negotiate stairs. She notes that she has horses and chickens as well, but that her is able to maintain their care. Equipment Owned/DME: crutches, four-wheeled walker Subjective: NT Objective: General Observation: NT Mental Status: NT Pain: NT ROM: Right Upper Extremity: Shoulder Flexion WFL. Shoulder abduction WFL. Elbow flexion WFL. Wrist flexion WFL. Opening and closing of hand WFL. Left Upper Extremity: Shoulder Flexion WFL. Shoulder abduction WFL. Elbow flexion WFL. Wrist flexion WFL. Opening and closing of hand WFL. Right Lower Extremity: Hip flexion 110 degrees. Hip abduction WFL. Knee flexion WFL. Ankle dorsiflexion WFL. Ankle plantarflexion WFL. Left Lower Extremity: Hip flexion WFL. Hip abduction WFL. Knee flexion WFL. Ankle dorsiflexion WFL. Ankle plantarflexion WFL. Strength: Right Upper Extremity: Shoulder flexors 5/5. Shoulder abductors 5/5. Elbow flexors 5/5. Elbow extensors 5/5. Showroom Consultant strong. Left Upper Extremity: Shoulder flexors 5/5. Shoulder abductors 5/5. Elbow flexors 5/5. Elbow extensors 5/5. Showroom Consultant strong. Right Lower Extremity: Hip flexors 3-/5. Hip abductors 4/5. Knee flexors 4/5. Knee extensors 5/5. Ankle dorsiflexors 5/5. Ankle plantarflexors 5/5. Left Lower Extremity: Hip flexors 5/5. Hip abductors 5/5. Knee flexors 5/5. Knee extensors 5/5. Ankle dorsiflexors 5/5. Ankle plantarflexors 5/5. Sensation: Intact as to pain and pressure on bilateral lower extremities. Bed Mobility/Transfers: Rolling independent Supine to sit independent Sit to supine independent Sit to stand independent Stand to sit independent Bed to chair independent Chair to bed independent Gait: Pt was able to ambulate 120 feet with WBAT using a front-wheeled walker. Step through gait pattern with decreased radha. CGA by PT student with wheelchair follow by PT. Pt denied increased pain, SOB, lightheadedness/dizziness. Swing phase on the L LE appeared longer. Balance: Static Sitting: Normal Dynamic Sitting: Normal Static Standing: Good Dynamic Standing: Fair Assessment: Pt is a 69-year-old female presenting status post a R anterior approach total hip arthroplasty on post-operative day 1. Pt presents to physical therapy with impairment level findings and functional impairments as listed below. She would continue to benefit from skilled physical therapy for improvements in functional mobility. Patient presents with clinical signs and symptoms consistent with current/admitting diagnoses that have resulted to mobility limitations, gait instability, and generalized weakness as demonstrated by the following impairment level findings: 1. Decreased strength to R hip musculature 2. Impaired standing balance 3. Impaired activity tolerance 4. Limitation of joint range of motion in R hip Impairments are contributing to the following functional limitations: 1. Increased dependence with transfers 2. Inability to safely ambulate without assistive device and physical assistance 3. Increase completion time for mobility ADL performance 4. Increased fall risk 5. Inability to negotiate steps alone safely Goals: Goals X1 week 1. Sit-Stand independent MET 2. Stand-Sit independent NOT MET 3. Bed-Chair independent NOT MET 4. Chair-Bed independent NOT MET 5. Independent gait on level surface with use of least restrictive device for at least 300 feet without report of pain nor dyspnea NOT MET 6. Independent stair negotiation while holding onto bilateral rails for at least 5 steps without report of pain nor dyspnea NOT MET 7. Independent with home exercise program NOT MET 8. Good dynamic standing balance/tolerance NOT MET DISCHARGE RECOMMENDATIONS: Pt is to be discharged home when medically cleared. Recommend the use of a front-wheeled walker for safe ambulation in the home. TREATMENT CODE/TIME: PR Thank you very much for this referral. Cynthia Helms PT, DPT, CLT [facility] [place], [place]
== END 2019-11-10 16:40 | disposition home or self-care (01) ==
LOC: MS 10:11 → PDS 10:11
PROVIDERS: Admitting Provider Student in an Organized Health Care Education/Training Program; Visit Provider Student in an Organized Health Care Education/Training Program
PROC: 0SR904A Replacement of Right Hip Joint with Ceramic on Polyethylene Synthetic Substitute, Uncemented, Open Approach (ICD-10-PCS; CPT 27130; principal; 2019-11-10 07:30)
DX: M16.11 Unilateral primary osteoarthritis, right hip (principal); M25.551 Pain in right hip; Z96.641 Presence of right artificial hip joint
CPT/HCPCS: 27130; C1713; 97162; NC; 73501; G0378; J0690; J1100; J1885; J2001; J2405; J2704; J3010

== ENCOUNTER 2019-11-25 10:58 | Outpatient (CLI) | payer OTHER, SELFPAY ==
--- NOTE | 2019-11-25 10:42 | DI.RAD_ITS ---
EXAM: XR HIP RT COMPLETE AP PELVIS CLINICAL HISTORY: 1ST POST OP TECHNIQUE: COMPARISON: XR PELVIS AP from 09/02/2019 FINDINGS: Two views were obtained. There is a total hip joint replacement in position. The components appear well seated. No other significant bony abnormality seen. IMPRESSION:
== END 2019-11-25 11:18 ==
PROVIDERS: Visit Provider Student in an Organized Health Care Education/Training Program
DX: Z96.641 Presence of right artificial hip joint (principal); Z47.1 Aftercare following joint replacement surgery
CPT/HCPCS: 73502

== ENCOUNTER → 2019-12-23 10:01 | Outpatient (BNVA) | payer OTHER, SELFPAY | PROVIDERS: Visit Provider Student in an Organized Health Care Education/Training Program | DX: Z96.641 Presence of right artificial hip joint (principal); Z47.1 Aftercare following joint replacement surgery ==

== ENCOUNTER 2020-11-16 11:29 | Outpatient (CLI) | payer OTHER, SELFPAY ==
--- NOTE | 2020-11-16 09:15 | DI.RAD_ITS ---
EXAM: XR HIP RT AP LAT ONLY CLINICAL HISTORY: annual f/u R TATIANA. TECHNIQUE: 2D digital imaging was performed. COMPARISON: CR XR HIP RT COMPLETE AP PELVIS from 11/25/2019 FINDINGS: There is satisfactory position alignment of the components of the prosthesis of the right hip. No fr acture or loosening evident. No radiographic evidence of osteomyelitis. IMPRESSION: DATA REPOSITORY: RADIATION DOSE DELIVERED:
== END 2020-11-16 11:49 ==
PROVIDERS: PCP Family Medicine; Referring Provider Family Medicine; Visit Provider Student in an Organized Health Care Education/Training Program
DX: Z96.641 Presence of right artificial hip joint (principal); Z47.1 Aftercare following joint replacement surgery
CPT/HCPCS: 99213; 73502

== ENCOUNTER 2020-11-22 02:37 | Outpatient (CLI) | payer OTHER, SELFPAY ==
--- NOTE | 2020-11-22 13:15 | DI.MAMMO_ITS ---
EXAM: MG MAMMO SCREENING CLINICAL HISTORY: screening,Z12.39 TECHNIQUE: Bilateral full field digital CC and MLO mammographic images were obtained with 3D tomosyn thesis and utilizing computer aided detection (CAD). COMPARISON: Available for comparison. FINDINGS: Masses/Architectural Distortion: None seen. Microcalcifications: No suspicious pleomorphic-type are seen. Skin Thickening/Nipple Retraction: None. IMPRESSION: 1. No significant interval change with no specific features of malignancy noted. 2. Unless there is more urgent need, screening mammography is recommended, as per [place] [employer] guidelines. BI-RADS Category 1 - Negative Breast Density - Category B - Scattered areas of fibroglandular density Breast density category C or D implies that the patient has dense breast tissue. Dense breast tissue is very common and is not abnormal but dense breast tissue can make it harder to find cancer on a ma mmogram. Also, dense breast tissue may increase their breast cancer risk. This information about the result of the mammogram report was provided to the patient to raise their awareness. Use this report when you speak with the patient about their risks for breast cancer, which includes their family hist ory. At that time, you may recommend for more screening tests (Ultrasound or MRI) as they might be us eful based on their risk. A negative radiographic report should not delay biopsy if a dominant or clinically suspicious mass is present. Up to ten percent of cancers are not identified on mammography. A negative report may reinforce clinical impression. Adenosis and dense breasts may obscure an underlying neoplasm. False positive reports average 6 to 10%. Patient will receive a letter notifying them of these results.
== END 2020-11-22 02:38 | disposition home or self-care (01) ==
LOC: DI 02:37
PROVIDERS: PCP Family Medicine; Visit Provider Family Medicine
DX: Z12.31 Encounter for screening mammogram for malignant neoplasm of breast (principal)
CPT/HCPCS: 77063; 77067